=== PATIENT | female | born 1995 | race African-American/Black ===

== ENCOUNTER 2019-09-29 05:00 | Inpatient (IN) | payer OTHER ==
[2019-09-29] MEDS ORDERED: BUTORPHANOL TARTRATE 1 MG/ML VIAL IVPB ONE (06:15)
[2019-09-29] MEDS ORDERED: PROMETHAZINE HCL 25 MG/1 ML VIAL IVPUSH ONE (06:15)
[2019-09-29] MEDS ORDERED: ELECTROLYTE-148 SOLN 1,000 ML IV SCH (06:15)
[2019-09-29 07:15] VITALS: BMI 27.1
[2019-09-29 07:28] LABS: INR 0.93 (0.83-1.09)
[2019-09-29 07:31] LABS: ACTIVATED PTT 26.8 SECONDS (25.2-36.5)
[2019-09-29 07:42] LABS: BLOOD UREA NITROGEN 6.1 mg/dL (7-18); CALCIUM 8.6 mg/dL (8.5-10.1); CREATININE 0.5 mg/dL (0.55-1.3); POTASSIUM 4.3 mmol/L (3.5-5.1)
[2019-09-29 07:44] LABS: BASO % 0.3 % (0-2.0); EOS % 0.1 % (0-4.5); HEMATOCRIT 30.5 % (32.4-45.2); HEMOGLOBIN 9.8 GM/dL (10.7-15.3); LYMPH % 15.6 % (8-40); MCH 24.9 pg (25.7-33.7); MCHC 32.2 g/dl (32.0-36.0); MEAN CELL VOLUME 77.4 fl (80-96); MEAN PLT VOLUME 10.2 fl (7.5-11.1); MONO % 6.1 % (3.8-10.2); NEUT % 77.9 % (42.8-82.8); PLATELET COUNT 143 K/MM3 (134-434); RBC 3.94 M/mm3 (3.60-5.2); RDW 16.7 % (11.6-15.6); WHITE BLOOD COUNT 11.5 K/mm3 (4.0-10.0)
[2019-09-29] MEDS ORDERED: FENTANYL/BUPIVACAINE/NS/PF - PCEA - 50 ML DISP.SYRIN EP ONE ×2 (07:49→12:50)
[2019-09-29] MEDS ORDERED: PCA PUMP NR ONE ×2 (07:52→12:50)
[2019-09-29] MEDS ORDERED: LIDO 2%/EPI 1:200000 PRESRVFRE (20 ML SDVIAL) ONE (08:06)
[2019-09-29] MEDS ORDERED: BUPIVACAINE HCL/PF 0.25% (2.5MG/ML) 10 ML VIAL ONE (08:06)
[2019-09-29] MEDS ORDERED: FENTANYL/BUPIVACAINE/NS/PF - PCEA - 50 ML DISP.SYRIN EP SCH (08:30)
[2019-09-29] MEDS ORDERED: OXYTOCIN 20 UNITS in 0.9% NS 20 UNIT/1,000 ML INFUS.BAG IV ONE ×2 (13:40→17:37)
[2019-09-29] MEDS ORDERED: LIDOCAINE HCL 1% PRESERVATIVE FREE - 30ML VIAL ONE (13:40)
[2019-09-29] MEDS: OXYTOCIN 20 UNITS in 0.9% NS 20 UNIT/1,000 ML INFUS.BAG IV SCH ×2 (15:45→19:52)
[2019-09-29] MEDS ORDERED: ACETAMINOPHEN 325 MG TABLET (FP) PO PRN (16:17)
[2019-09-29] MEDS ORDERED: BENZOCAINE 28 GM HEMORRHOIDAL OINTMENT PR PRN (16:17)
[2019-09-29] MEDS ORDERED: METHYLERGONOVINE MALEATE 0.2 MG/1 ML AMP IM PRN (16:17)
[2019-09-29] MEDS ORDERED: IBUPROFEN 600 MG TABLET (FP) PO PRN (16:17)
[2019-09-29] MEDS ORDERED: WITCH HAZEL 50% (TUCKS) 40 PAD/JAR PAD TP PRN (16:17)
[2019-09-29] MEDS ORDERED: BENZOCAINE 20% 57 GM BOTTLE TP PRN (16:17)
[2019-09-29] MEDS ORDERED: BISACODYL 10 MG SUPP.RECT PR PRN (16:17)
[2019-09-29] MEDS ORDERED: SENNOSIDES/DOCUSATE COMBO (SENNA PLUS) TABLET (UD) PO SCH (22:00)
[2019-09-30 10:39] LABS: BASO % 0.3 % (0-2.0); EOS % 0.4 % (0-4.5); LYMPH % 18.6 % (8-40); MCH 25.3 pg (25.7-33.7); MCHC 32.5 g/dl (32.0-36.0); MEAN CELL VOLUME 77.7 fl (80-96); MEAN PLT VOLUME 10.3 fl (7.5-11.1); NEUT % 73.7 % (42.8-82.8); PLATELET COUNT 148 K/MM3 (134-434); RBC 2.57 M/mm3 (3.60-5.2); RDW 17.4 % (11.6-15.6); WHITE BLOOD COUNT 13.4 K/mm3 (4.0-10.0)
[2019-09-30 10:51] LABS: HEMOGLOBIN 6.5 GM/dL (10.7-15.3)
[2019-09-30] MEDS ORDERED: ACETAMINOPHEN 1000 MG/100 ML VIAL (NON FORMULARY) IVPB ONE (15:15)
[2019-09-30 22:17] LABS: EPI CELLS 3 /uL (0-25.1); HYALINE CASTS 1 /uL (0-3.1); PH,URINE 7.5 (5.0-8.0); URINE APPEARANCE CLOUDY; URINE BILIRUBIN NEGATIVE (NEGATIVE); URINE COLOR YELLOW; URINE GLUCOSE (UA) NEGATIVE (NEGATIVE); URINE KETONE NEGATIVE (NEGATIVE); URINE LEUK ESTERASE 1+ (NEGATIVE); URINE NITRITE NEGATIVE (NEGATIVE); URINE PROTEIN NEGATIVE (NEGATIVE); URINE RBC 289 /uL (0-23.9); URINE UROBILINOGEN 0.2 mg/dL (0.2-1.0); URINE WBC 187 /uL (0-25.8)
[2019-09-30] MEDS ORDERED: ceFAZolin 2 GRAM PREMIX BAG IVPB SCH (23:30)
[2019-10-01 02:21] LABS: BASO % 0.3 % (0-2.0); EOS % 0.2 % (0-4.5); HEMATOCRIT 20.6 % (32.4-45.2); LYMPH % 18.5 % (8-40); MCH 24.9 pg (25.7-33.7); MCHC 31.6 g/dl (32.0-36.0); MEAN CELL VOLUME 78.8 fl (80-96); MEAN PLT VOLUME 9.7 fl (7.5-11.1); MONO % 9.7 % (3.8-10.2); NEUT % 71.3 % (42.8-82.8); PLATELET COUNT 146 K/MM3 (134-434); RBC 2.62 M/mm3 (3.60-5.2); RDW 17.5 % (11.6-15.6); WHITE BLOOD COUNT 12.5 K/mm3 (4.0-10.0)
[2019-10-01 02:40] LABS: HEMOGLOBIN 6.5 GM/dL (10.7-15.3)
[2019-10-01 02:54] LABS: ALBUMIN 2.4 g/dl (3.4-5.0); BILIRUBIN,TOTAL 0.1 mg/dL (0.2-1); BLOOD UREA NITROGEN 6.8 mg/dL (7-18); CALCIUM 8.1 mg/dL (8.5-10.1); CREATININE 0.7 mg/dL (0.55-1.3); POTASSIUM 3.8 mmol/L (3.5-5.1); TOT PROT 5.4 g/dl (6.4-8.2)
[2019-10-01 03:37] LABS: INR 0.97 (0.83-1.09); PROTHROMBIN TIME (PATIENT) 11.5 SEC (9.7-13.0)
[2019-10-01 03:40] LABS: ACTIVATED PTT 28.8 SECONDS (25.2-36.5)
[2019-10-01] MEDS: ceFAZolin 2 GRAM PREMIX BAG IVPB SCH ×3 (08:27→22:27)
[2019-10-02] MEDS: FERROUS GLUCONATE 324 MG TAB (FP) PO SCH ×4 (00:32→17:36)
[2019-10-02] MEDS: DOCUSATE SODIUM 100 MG CAPSULE (FP) PO SCH ×2 (00:32→10:05)
[2019-10-02] MEDS: ceFAZolin 2 GRAM PREMIX BAG IVPB SCH ×3 (04:30→15:49)
[2019-10-02 07:59] LABS: BASO % 0.4 % (0-2.0); EOS % 0.9 % (0-4.5); LYMPH % 23.1 % (8-40); MCH 25.3 pg (25.7-33.7); MCHC 32.7 g/dl (32.0-36.0); MEAN CELL VOLUME 77.4 fl (80-96); MEAN PLT VOLUME 9.2 fl (7.5-11.1); NEUT % 63.6 % (42.8-82.8); PLATELET COUNT 140 K/MM3 (134-434); RBC 2.46 M/mm3 (3.60-5.2); RDW 17.7 % (11.6-15.6); WHITE BLOOD COUNT 10.7 K/mm3 (4.0-10.0)
[2019-10-02 08:40] LABS: HEMOGLOBIN 6.2 GM/dL (10.7-15.3)
[2019-10-02 18:05] VITALS: BP 109/59; PULSE 100; TEMP 99.1
== END 2019-10-02 19:15 | disposition left against medical advice (07) | DRG 560 ==
LOC: JDEL 05:00 → JLDR 05:30 → J3W 17:49
PROVIDERS: ADMIT Obstetrics & Gynecology; ATTEND Obstetrics & Gynecology
PROC: 10D07Z6 Extraction of Products of Conception, Vacuum, Via Natural or Artificial Opening (ICD-10-PCS; principal; 2019-09-29)
PROC: 0HQ9XZZ Repair Perineum Skin, External Approach (ICD-10-PCS; 2019-09-29)
PROC: 30233R1 Transfusion of Nonautologous Platelets into Peripheral Vein, Percutaneous Approach (ICD-10-PCS; 2019-09-30)
DX: O48.0 Post-term pregnancy (principal); Z3A.40 40 weeks gestation of pregnancy; Z37.0 Single live birth; O76 Abnormality in fetal heart rate and rhythm complicating labor and delivery; O75.81 Maternal exhaustion complicating labor and delivery; D64.9 Anemia, unspecified; O70.0 First degree perineal laceration during delivery; F50.9 Eating disorder, unspecified; R00.0 Tachycardia, unspecified
CPT/HCPCS: 36415; 36430; 36511; 36600; 59409; 71045-TC-FY; 80048; 80053; 81003; 82803; 83605; 85025; 85610; 85730; 86078; 86780; 86850; 86900; 86901; 86922; 87040; 87086; 93005; 93010; J0131; P9038; P9058; U0002